=== PATIENT | female | born 1960 | race American Indian/Alaskan Native ===

== ENCOUNTER 2019-06-12 13:52 | Emergency (ER) | payer MEDICAID ==
[2019-06-12 14:20] LABS: Bacteria,Urine 1+ /HPF (Negative); Bilirubin,Urine NEG (Negative); Blood,Urine NEG (Negative); Color,Urine Yellow (Yellow); Mucus,Urine FEW /HPF; Protein,Urine <15 mg/dL mg/dL (Negative); RBC,Urine < 1.0 /HPF (0.0-6.0); Urobilinogen,Urine < 2.0 mg/dL (<2.0)
[2019-06-12 14:27] LABS: Amphetamine Screen,Urine PRESUMPTIVE NEGATIVE; Benzodiazepines Screen,Urine PRESUMPTIVE NEGATIVE; Cannabinoid Screen,Urine PRESUMPTIVE NEGATIVE; Cocaine Screen,Urine PRESUMPTIVE NEGATIVE; Methadone Screen,Urine PRESUMPTIVE NEGATIVE; Opiate Screen,Urine PRESUMPTIVE NEGATIVE
[2019-06-12] MEDS ORDERED: ATIVAN IM PRN (14:44)
[2019-06-12] MEDS ORDERED: HALDOL IM PRN (14:44)
--- NOTE | 2019-06-12 14:45 | Emergency Department Report ---
<GIO PASCUAL - Last Filed: 06/12/19 17:11> ED General Adult HPI - General Chief complaint: Altered Mental Status Stated complaint: AMS Time Seen by Provider: 06/12/19 14:23 Source: patient, EMS ( EMS documentation not available at time of chart dictation ), RN notes reviewed Mode of arrival: Stretcher Limitations: Altered Mental Status, Other (the patient is a poor historian) - History of Present Illness Initial comments: This is a 59-year-old female. This patient is not known to this provider previously. The patient cannot tell me why she is at the hospital. Apparently, she was found in a stationary car, and was unresponsive. She was given Narcan in the field and was subsequently responsive to pain. Initially, the patient refused to follow commands. In the emergency room, she denies physical pain. She does not know how she got here. When asked about homicidality or suicidality, the patient will not answer. No additional history is available at this time. The patient specifically denied headache, neck pain, chest pain, abdominal pain, shortness of breath and urinary symptoms. She continues to be evasive about questions regarding suicidality. -: This afternoon Severity scale (0 -10): 0 Consistency: other Improves with: other Worsens with: other - Related Data Allergies Allergy/AdvReac Type Severity Reaction Status Date / Time Unable to Assess Allergy Unverified 06/12/19 14:06 ED Review of Systems Comment: see hpi Constitutional: see HPI Eyes: as per HPI ENT: as per HPI Respiratory: see HPI Cardiovascular: as per HPI Endocrine: see HPI Gastrointestinal: as per HPI Genitourinary: as per HPI Musculoskeletal: as per HPI Skin: as per HPI Neurological: as per HPI Psychiatric: as per HPI Hematological/Lymphatic: as per HPI ED Past Medical Hx - Past Medical History Additional medical history: DEEPIKA - Surgical History Additional Surgical History: DEEPIKA - Social History Smoking Status: Unknown if ever smoked ED Physical Exam - General Limitations: Other (the patient is disorganized. The patient is a poor historian.) General appearance: alert, in no apparent distress - Head Head exam: Present: atraumatic, normocephalic - Eye Eye exam: Present: normal appearance, EOMI, other (visual acuity intact to finger counting and color perception at a close distance). Absent: nystagmus - ENT ENT exam: Present: normal exam, normal orophraynx, mucous membranes moist, normal external ear exam - Neck Neck exam: Present: normal inspection, full ROM. Absent: tenderness, meningismus - Respiratory Respiratory exam: Present: normal lung sounds bilaterally. Absent: respiratory distress - Cardiovascular Cardiovascular Exam: Present: regular rate, normal rhythm, normal heart sounds. Absent: bradycardia, tachycardia, irregular rhythm, systolic murmur, diastolic murmur, rubs, gallop - GI/Abdominal GI/Abdominal exam: Present: soft. Absent: distended, tenderness, guarding, rigid, pulsatile mass - Extremities Exam Extremities exam: Present: normal inspection, full ROM, other (2+ pulses noted in the bilateral upper, lower extremities. There is no long bone tenderness. Musculoskeletal compartments are soft. The pelvis is stable.). Absent: pedal edema, calf tenderness - Back Exam Back exam: Present: normal inspection, full ROM. Absent: tenderness, CVA tenderness (R), CVA tenderness (L), paraspinal tenderness, vertebral tenderness - Neurological Exam Neurological exam: Present: alert (the patient is alert to name. She knows that she is at the hospital.), other (there is no facial droop. The tongue is midline. Extraocular movements are intact bilaterally. Patient speaking in full complete sentences. Shoulder shrug is intact bilaterally. Hearing is grossly intact bilaterally. Visual acuity intact to finger counting and color perception at a close distance. 5/5 strength 4 extremities. Sensation intact to light touch in 4 extremities.) - Psychiatric Psychiatric exam: Present: anxious, flat affect - Skin Skin exam: Present: warm, dry, intact, normal color. Absent: rash ED Course - Reevaluation(s) Reevaluation #1: 06/12/19 16:06 Differential diagnosis, including not limited to: Mood disorder, suicidality, overdose, intracranial hemorrhage, toxic overdose, metabolic insult Assessment and plan: 59-year-old female reportedly found in a car, unresponsive, given Narcan, would not follow commands, at this point time, appears to be somewhat disorganized, alert to name and location, she does not appear to be able to care for herself independently at this time, she is evasive about questions regarding suicidality, she will not answer questions about overdose. Given all the above, the patient will be placed on a psychiatric hold, and a psychiatric consultation will be requested. Screening laboratory studies so far have been unremarkable. Potassium is repleted. Psychiatric consultation and case management consultation will be requested. Reevaluation #2: 06/12/19 17:12 The patient Is resting comfortably, and in no acute distress. CT scan brain, x- ray of the chest are unremarkable. Her incidental leukopenia and thromboc ytopenia do not represent an emergency medical condition that would require hospitalization, or emergent consultation, and these can be followed up as an outpatient. The patient at this point time does not appear to have an immediate medical condition that would preclude psychiatric evaluation, consultation and placement in necessary. Psychiatric team is informed. ED Medical Decision Making - Lab Data Result diagrams: 06/12/19 14:48 06/12/19 14:48 Vital Signs 06/12/19 06/12/19 06/12/19 13:46 13:54 14:00 Temperature 98.4 F Pulse Rate 80 75 69 Respiratory 17 16 10 L Rate Blood Pressure Blood Pressure 161/89 [Right] O2 Sat by Pulse 99 99 99 Oximetry 06/12/19 06/12/19 06/12/19 14:07 14:15 14:30 Temperature Pulse Rate 68 64 Respiratory 15 14 18 Rate Blood Pressure 161/89 143/85 Blood Pressure [Right] O2 Sat by Pulse 100 98 99 Oximetry 06/12/19 15:51 Temperature Pulse Rate 61 Respiratory 18 Rate Blood Pressure Blood Pressure 151/84 [Right] O2 Sat by Pulse 100 Oximetry Lab Results 06/12/19 06/12/19 06/12/19 Range/Units 14:11 14:11 14:14 WBC (4.5-11.0) K/mm3 RBC (3.65-5.03) M/mm3 Hgb (10.1-14.3) gm/dl Hct (30.3-42.9) % MCV (79-97) fl MCH (28-32) pg MCHC (30-34) % RDW (13.2-15.2) % Sodium (137-145) mmol/L Potassium (3.6-5.0) mmol/L Chloride (98-107) mmol/L Carbon Dioxide (22-30) mmol/L Anion Gap mmol/L BUN (7-17) mg/dL Creatinine (0.7-1.2) mg/dL Estimated GFR ml/min BUN/Creatinine Ratio % Glucose (65-100) mg/dL POC Glucose 82 (70-105) Calcium (8.4-10.2) mg/dL Magnesium (1.7-2.3) mg/dL Total Bilirubin (0.1-1.2) mg/dL AST (5-40) units/L ALT (7-56) units/L Alkaline Phosphatase (35-129) units/L Total Creatine Kinase (30-135) units/L Total Protein (6.3-8.2) g/dL Albumin (3.9-5) g/dL Albumin/Globulin Ratio % TSH (0.270-4.200) mlU/mL Free T4 (0.76-1.46) ng/dL Urine Color Yellow (Yellow) Urine Turbidity Clear (Clear) Urine pH 7.0 (5.0-7.0) Ur Specific [place] 1.016 (1.003-1.030) Urine Protein <15 mg/dl (Negative) mg/dL Urine Glucose (UA) Neg (Negative) mg/dL Urine Ketones Neg (Negative) mg/dL Urine Blood Neg (Negative) Urine Nitrite Neg (Negative) Urine Bilirubin Neg (Negative) Urine Urobilinogen < 2.0 (<2.0) mg/dL Ur Leukocyte Esterase Neg (Negative) Urine WBC (Auto) 1.0 (0.0-6.0) /HPF Urine RBC (Auto) < 1.0 (0.0-6.0) /HPF U Epithel Cells (Auto) < 1.0 (0-13.0) /HPF Urine Bacteria (Auto) 1+ (Negative) /HPF Urine Mucus Few /HPF Salicylates (2.8-20.0) mg/dL Urine Opiates Screen Presumptive negative Urine Methadone Screen Presumptive negative Acetaminophen (10.0-30.0) ug/mL Ur Barbiturates Screen Presumptive negative Valproic Acid (50-100) ug/mL Ur Phencyclidine Scrn Presumptive negative Ur Amphetamines Screen Presumptive negative U Benzodiazepines Scrn Presumptive negative [place] (0.0-1.2) mmol/L Urine Cocaine Screen Presumptive negative U Marijuana (THC) Screen Presumptive negative Drugs of Abuse Note Disclamer Plasma/Serum Alcohol (0-0.07) % 06/12/19 06/12/19 06/12/19 Range/Units 14:48 14:48 14:48 WBC 3.1 L (4.5-11.0) K/mm3 RBC 4.33 (3.65-5.03) M/mm3 Hgb 13.2 (10.1-14.3) gm/dl Hct 38.9 (30.3-42.9) % MCV 90 (79-97) fl MCH 31 (28-32) pg MCHC 34 (30-34) % RDW 14.2 (13.2-15.2) % Sodium 142 (137-145) mmol/L Potassium 3.3 L (3.6-5.0) mmol/L Chloride 101.4 (98-107) mmol/L Carbon Dioxide 26 (22-30) mmol/L Anion Gap 18 mmol/L BUN 6 L (7-17) mg/dL Creatinine 0.5 L (0.7-1.2) mg/dL Estimated GFR > 60 ml/min BUN/Creatinine Ratio 12 % Glucose 97 (65-100) mg/dL POC Glucose (70-105) Calcium 9.4 (8.4-10.2) mg/dL Magnesium 2.10 (1.7-2.3) mg/dL Total Bilirubin 0.90 (0.1-1.2) mg/dL AST 24 (5-40) units/L ALT 15 (7-56) units/L Alkaline Phosphatase 75 (35-129) units/L Total Creatine Kinase 35 (30-135) units/L Total Protein 8.8 H (6.3-8.2) g/dL Albumin 4.3 (3.9-5) g/dL Albumin/Globulin Ratio 1.0 % TSH (0.270-4.200) mlU/mL Free T4 1.28 (0.76-1.46) ng/dL Urine Color (Yellow) Urine Turbidity (Clear) Urine pH (5.0-7.0) Ur Specific [place] (1.003-1.030) Urine Protein (Negative) mg/dL Urine Glucose (UA) (Negative) mg/dL Urine Ketones (Negative) mg/dL Urine Blood (Negative) Urine Nitrite (Negative) Urine Bilirubin (Negative) Urine Urobilinogen (<2.0) mg/dL Ur Leukocyte Esterase (Negative) Urine WBC (Auto) (0.0-6.0) /HPF Urine RBC (Auto) (0.0-6.0) /HPF U Epithel Cells (Auto) (0-13.0) /HPF Urine Bacteria (Auto) (Negative) /HPF Urine Mucus /HPF Salicylates (2.8-20.0) mg/dL Urine Opiates Screen Urine Methadone Screen Acetaminophen (10.0-30.0) ug/mL Ur Barbiturates Screen Valproic Acid (50-100) ug/mL Ur Phencyclidine Scrn Ur Amphetamines Screen U Benzodiazepines Scrn [place] (0.0-1.2) mmol/L Urine Cocaine Screen U Marijuana (THC) Screen Drugs of Abuse Note Plasma/Serum Alcohol (0-0.07) % 06/12/19 06/12/19 06/12/19 Range/Units 14:48 14:48 14:48 WBC (4.5-11.0) K/mm3 RBC (3.65-5.03) M/mm3 Hgb (10.1-14.3) gm/dl Hct (30.3-42.9) % MCV (79-97) fl MCH (28-32) pg MCHC (30-34) % RDW (13.2-15.2) % Sodium (137-145) mmol/L Potassium (3.6-5.0) mmol/L Chloride (98-107) mmol/L Carbon Dioxide (22-30) mmol/L Anion Gap mmol/L BUN (7-17) mg/dL Creatinine (0.7-1.2) mg/dL Estimated GFR ml/min BUN/Creatinine Ratio % Glucose (65-100) mg/dL POC Glucose (70-105) Calcium (8.4-10.2) mg/dL Magnesium (1.7-2.3) mg/dL Total Bilirubin (0.1-1.2) mg/dL AST (5-40) units/L ALT (7-56) units/L Alkaline Phosphatase (35-129) units/L Total Creatine Kinase (30-135) units/L Total Protein (6.3-8.2) g/dL Albumin (3.9-5) g/dL Albumin/Globulin Ratio % TSH 1.720 (0.270-4.200) mlU/mL Free T4 (0.76-1.46) ng/dL Urine Color (Yellow) Urine Turbidity (Clear) Urine pH (5.0-7.0) Ur Specific [place] (1.003-1.030) Urine Protein (Negative) mg/dL Urine Glucose (UA) (Negative) mg/dL Urine Ketones (Negative) mg/dL Urine Blood (Negative) Urine Nitrite (Negative) Urine Bilirubin (Negative) Urine Urobilinogen (<2.0) mg/dL Ur Leukocyte Esterase (Negative) Urine WBC (Auto) (0.0-6.0) /HPF Urine RBC (Auto) (0.0-6.0) /HPF U Epithel Cells (Auto) (0-13.0) /HPF Urine Bacteria (Auto) (Negative) /HPF Urine Mucus /HPF Salicylates < 0.3 L (2.8-20.0) mg/dL Urine Opiates Screen Urine Methadone Screen Acetaminophen < 5.0 L (10.0-30.0) ug/mL Ur Barbiturates Screen Valproic Acid < 2.8 L (50-100) ug/mL Ur Phencyclidine Scrn Ur Amphetamines Screen U Benzodiazepines Scrn [place] 0.1 (0.0-1.2) mmol/L Urine Cocaine Screen U Marijuana (THC) Screen Drugs of Abuse Note Plasma/Serum Alcohol (0-0.07) % 06/12/19 Range/Units 14:48 WBC (4.5-11.0) K/mm3 RBC (3.65-5.03) M/mm3 Hgb (10.1-14.3) gm/dl Hct (30.3-42.9) % MCV (79-97) fl MCH (28-32) pg MCHC (30-34) % RDW (13.2-15.2) % Sodium (137-145) mmol/L Potassium (3.6-5.0) mmol/L Chloride (98-107) mmol/L Carbon Dioxide (22-30) mmol/L Anion Gap mmol/L BUN (7-17) mg/dL Creatinine (0.7-1.2) mg/dL Estimated GFR ml/min BUN/Creatinine Ratio % Glucose (65-100) mg/dL POC Glucose (70-105) Calcium (8.4-10.2) mg/dL Magnesium (1.7-2.3) mg/dL Total Bilirubin (0.1-1.2) mg/dL AST (5-40) units/L ALT (7-56) units/L Alkaline Phosphatase (35-129) units/L Total Creatine Kinase (30-135) units/L Total Protein (6.3-8.2) g/dL Albumin (3.9-5) g/dL Albumin/Globulin Ratio % TSH (0.270-4.200) mlU/mL Free T4 (0.76-1.46) ng/dL Urine Color (Yellow) Urine Turbidity (Clear) Urine pH (5.0-7.0) Ur Specific [place] (1.003-1.030) Urine Protein (Negative) mg/dL Urine Glucose (UA) (Negative) mg/dL Urine Ketones (Negative) mg/dL Urine Blood (Negative) Urine Nitrite (Negative) Urine Bilirubin (Negative) Urine Urobilinogen (<2.0) mg/dL Ur Leukocyte Esterase (Negative) Urine WBC (Auto) (0.0-6.0) /HPF Urine RBC (Auto) (0.0-6.0) /HPF U Epithel Cells (Auto) (0-13.0) /HPF Urine Bacteria (Auto) (Negative) /HPF Urine Mucus /HPF Salicylates (2.8-20.0) mg/dL Urine Opiates Screen Urine Methadone Screen Acetaminophen (10.0-30.0) ug/mL Ur Barbiturates Screen Valproic Acid (50-100) ug/mL Ur Phencyclidine Scrn Ur Amphetamines Screen U Benzodiazepines Scrn [place] (0.0-1.2) mmol/L Urine Cocaine Screen U Marijuana (THC) Screen Drugs of Abuse Note Plasma/Serum Alcohol < 0.01 (0-0.07) % - EKG Data -: EKG Interpreted by Me - EKG Data When compared to previous EKG there are: previous EKG unavailable 06/12/19 16:08 There is currently no EKG available for comparison. This is a bradycardic rate, 59 bpm, left axis deviation, left anterior fascicular block, MA interval prolonged, QTC within normal limits, there is borderline left ventricular hypertrophy, the EKG is abnormal, there is no prior for comparison, this is not consistent with ST elevation myocardial infarction. - Radiology Data Radiology results: pending, image reviewed ED Disposition Clinical Impression: Disorganized behavior Disposition: DC-01 TO HOME OR SELFCARE Is pt being admited?: No Does the pt Need Aspirin: No Condition: Good Referrals: LULI PARDO MD [Primary Care Provider] - 3-5 Days <JANIE FRIEDMAN - Last Filed: 06/13/19 16:41> ED Review of Systems ROS: Stated complaint: AMS Other details as noted in HPI ED Course Vital Signs 06/12/19 06/12/19 06/12/19 13:46 13:54 14:00 Temperature 98.4 F Pulse Rate 80 75 69 Respiratory 17 16 10 L Rate Blood Pressure Blood Pressure 161/89 [Right] O2 Sat by Pulse 99 99 99 Oximetry 06/12/19 06/12/19 06/12/19 14:07 14:15 14:30 Temperature Pulse Rate 68 64 Respiratory 15 14 18 Rate Blood Pressure 161/89 143/85 Blood Pressure [Right] O2 Sat by Pulse 100 98 99 Oximetry 06/12/19 06/12/19 06/12/19 15:51 16:00 16:15 Temperature Pulse Rate 62 60 59 L Respiratory 20 11 L 14 Rate Blood Pressure 151/84 142/84 142/84 Blood Pressure 151/84 [Right] O2 Sat by Pulse 100 98 99 Oximetry 06/12/19 06/12/19 06/13/19 19:55 20:02 00:46 Temperature 98.5 F 98.2 F Pulse Rate 78 Respiratory 18 16 16 Rate Blood Pressure 113/68 Blood Pressure 103/69 [Right] O2 Sat by Pulse 99 Oximetry 06/13/19 06/13/19 06/13/19 01:00 08:23 14:35 Temperature 98.2 F 97.6 F 98.6 F Pulse Rate 69 69 64 Respiratory 16 16 16 Rate Blood Pressure Blood Pressure 113/68 118/74 123/79 [Right] O2 Sat by Pulse 100 98 97 Oximetry ED Medical Decision Making - Lab Data Result diagrams: 06/12/19 14:48 06/12/19 14:48 - Medical Decision Making At this point the patient is seen by mental health staff. Patient states to her mental health staff that she was in her car just meditating. She did not want to talk to anyone. Patient is calm and cooperative at this time. Patient's 1013 has been present about mental health staff and patient be discharged home. Critical care attestation.: If time is entered above; I have spent that time in minutes in the direct care of this critically ill patient, excluding procedure time. ED Disposition Is pt being admited?: No Does the pt Need Aspirin: No Time of Disposition: 16:41
[2019-06-12 15:19] LABS: Alanine Aminotransferase 15 units/L (7-56); Albumin 4.3 g/dL (3.9-5); BUN/Creatinine Ratio 12; Blood Urea Nitrogen 6 mg/dL (7-17); Calcium 9.4 mg/dL (8.4-10.2); Hemolysis Index 6
[2019-06-12 15:35] LABS: Hematocrit 38.9 % (30.3-42.9); Hemoglobin 13.2 gm/dl (10.1-14.3); Mean Corpuscular HGB Conc 34 % (30-34); Mean Corpuscular Volume 90 fl (79-97); Red Blood Count 4.33 M/mm3 (3.65-5.03); Red Cell Distribution Width 14.2 % (13.2-15.2)
[2019-06-12] MEDS ORDERED: K-DUR PO ONE (16:03)
--- NOTE | 2019-06-12 16:16 | XRay Report ---
CHEST 1 VIEW INDICATION: ams od. COMPARISON: 05/06/2019 FINDINGS: Support devices: None. Heart: Within normal limits. Pulmonary vasculature: Normal. Lungs/Pleura: No acute air space or interstitial disease. Additional findings: None. IMPRESSION: 1. No acute findings. Signer Name: Jovany Alvarado MD Signed: 06/12/2019 4:12 PM Workstation Name: [id number]
[2019-06-12 16:48] LABS: Platelet Count 78 K/mm3 (140-440)
--- NOTE | 2019-06-12 17:01 | Cat Scan Report ---
CT head/brain wo con INDICATION: Altered mental status.. TECHNIQUE: Routine CT head without contrast. All CT scans at this location are performed using CT dos e reduction for ALARA by means of automated exposure control. COMPARISON: Head CT dated 05/06/2019. FINDINGS: BRAIN / INTRACRANIAL CONTENTS: No acute hemorrhage, mass effect, midline shift, or hydrocephalus. No appreciable acute large territorial or lacunar infarct. No chronic infarct or focal atrophy. Normal b rain volume and ventricular/sulcal size for age. ORBITS: No significant abnormality of visualized orbits. SINUSES / MASTOIDS: No significant abnormality of visualized sinuses and mastoid air cells. ADDITIONAL FINDINGS: None. IMPRESSION: 1. No acute intracranial abnormality. No adverse change from the prior exam. Signer Name: Peter Teixeira MD Signed: 06/12/2019 4:57 PM Workstation Name: [id number]
--- NOTE | 2019-06-13 12:53 | Consultation ---
History of Present Illness - Reason for Consult Consult date: 06/13/19 Reason for consult: Mental Health Evaluation Requesting physician: GIO PASCUAL - Chief Complaint Chief complaint: "I didn't want to be bothered" - History of Present Psychiatric Illness 59 y.o. AA female who was unresponsive in a car prior to her arrival to the ER. Today the patient was calm and cooperative during the assessment. She stated that she's homeless and reside in her car. She stated that she was "meditating" yesterday when EMS arrived at her car. She stated that she didn't want to talk to anyone when EMS tried to communicate with her. She denies taking any medication prior to the arrival of EMS and denies a hx of suicide attempts when asked. She stated that her life have been "hard" since being unemployed. She stated that her main issues is finding a residence and getting back to work. She stated that she made a mistake by parking and not responding to EMS. She denies SI/HI's, AVH's, and being depressed. She denies erratic sleep and a poor appetite. She denies recreational drug use and alcohol consumption (etoh). Medications and Allergies Allergies Allergy/AdvReac Type Severity Reaction Status Date / Time Unable to Assess Allergy Unverified 06/12/19 14:06 Active Meds: Active Medications Haloperidol Lactate (Haldol) 5 mg IM Q6HR PRN PRN Reason: Agitation Lorazepam (Ativan) 2 mg IM Q4HR PRN PRN Reason: Agitation Past psychiatric history - Past Medical History Past Medical History: other (Left Hip injury) Past Surgical History: No surgical history - past Psychiatric treatment and history psychiatric treatment history: Denies a psy hx and a fam psy hx. - Social History Social history: other (Homeless) Mental Status Exam - Vital signs Last Vital Signs Temp 97.6 F 06/13/19 08:23 Pulse 69 06/13/19 08:23 Resp 16 06/13/19 08:23 BP 118/74 06/13/19 08:23 Pulse Ox 98 06/13/19 08:23 - Exam Narrative exam: MSE: Appearance: calm, cooperative Behavior: regular eye contact Speech: regular rate and tone Mood: "well" Affect: congruent to mood Thought Process: circumstantial Thought Content: denies SI/HI's and AVH's Motor Activity: sitting up in the bed Cognition: A/O x3 Insight: appropriate Judgment: fair Results Result Diagrams: 06/12/19 14:48 06/12/19 14:48 Abnormal lab results 06/12/19 06/12/19 06/12/19 Range/Units 14:48 14:48 14:48 WBC 3.1 L (4.5-11.0) K/mm3 Plt Count 78 L (140-440) K/mm3 Potassium 3.3 L (3.6-5.0) mmol/L BUN 6 L (7-17) mg/dL Creatinine 0.5 L (0.7-1.2) mg/dL Total Protein 8.8 H (6.3-8.2) g/dL Salicylates < 0.3 L (2.8-20.0) mg/dL Acetaminophen (10.0-30.0) ug/mL Valproic Acid < 2.8 L (50-100) ug/mL 06/12/19 Range/Units 14:48 WBC (4.5-11.0) K/mm3 Plt Count (140-440) K/mm3 Potassium (3.6-5.0) mmol/L BUN (7-17) mg/dL Creatinine (0.7-1.2) mg/dL Total Protein (6.3-8.2) g/dL Salicylates (2.8-20.0) mg/dL Acetaminophen < 5.0 L (10.0-30.0) ug/mL Valproic Acid (50-100) ug/mL All other labs normal. Assessment and Plan Assessment and plan: Impression: No overt psychosis with the patient. Today the patient is calm and cooperative during the assessment. The patient is no threat to self. UDS is negative. Recommendation/Plan: Rescind 1013. Case Mgmt involvement, the patient will need assistance with placement. Psy sign off. Staffed with Dr Amos Barahona.
[2019-06-13 15:56] VITALS: BP 123/79
== END 2019-06-13 18:32 | disposition home or self-care (01) ==
LOC: EEVIPCON 13:52 → ED 13:52
DX: R41.82 Altered mental status, unspecified (principal); R46.89 Other symptoms and signs involving appearance and behavior; Z59.0 Homelessness
CPT/HCPCS: 36415; 70450; 71045; 80053; 80164; 80178; 80307; 80320; 81001; 82140; 82550; 82962; 83735; 84439; 84443; 85027; 93005; 93010; G0480

== ENCOUNTER 2019-07-03 20:18 | Emergency (ER) | payer MEDICAID ==
[2019-07-03 20:38] VITALS: BP 139/70
--- NOTE | 2019-07-03 20:38 | Emergency Department Report ---
Blank Doc - Documentation Documentation: 59-year-old female that presents with URI symptoms. This initial assessment/diagnostic orders/clinical plan/treatment(s) is/are subject to change based on patient's health status, clinical progression and re- assessment by fellow clinical providers in the ED. Further treatment and workup at subsequent clinical providers discretion. Patient/guardians urged not to elope from the ED as their condition may be serious if not clinically assessed and managed. Initial orders include: 1- Patient sent to [facility] for further evaluation and treatment 2- flu swab 3- CXR
--- NOTE | 2019-07-03 22:13 | XRay Report ---
CHEST 2 VIEWS INDICATION: cough. COMPARISON: 06/12/2019 FINDINGS: Support devices: None. Heart: Within normal limits. Lungs: No acute air space or interstitial disease. Pleura: No significant pleural effusion. No pneumothorax. Additional findings: None. IMPRESSION: 1. No acute findings. Signer Name: Joshua Martin MD Signed: 07/03/2019 10:09 PM Workstation Name: [id number]
--- NOTE | 2019-07-04 00:14 | Emergency Department Report ---
ED General Adult HPI - General Chief complaint: Upper Respiratory Infection Stated complaint: BACK PAIN,RUNNING NOSE AND COUGH Time Seen by Provider: 07/03/19 20:38 Source: patient Mode of arrival: Ambulatory Limitations: No Limitations - History of Present Illness Initial comments: Ms. Romero is a 59 y/o aaf who presents for URI symptoms cough & rhinorrhea, and back with cough for past 1 week . pt denies fever or chills no n/v no sob no wheezing no cp. symptoms are exacerbated by activity , symptoms are relieved by rest. Onset/Timin -: week(s) Location: head Radiation: non-radiation Severity scale (0 -10): 4 Quality: aching Consistency: intermittent Improves with: rest Worsens with: other (activity ) Associated Symptoms: cough. denies: chest pain, fever/chills, nausea/vomiting, shortness of breath, weakness - Related Data Previous Rx's Medication Instructions Recorded Last Taken Type Benzonatate [Tessalon Perles] 100 mg PO Q8HR PRN #30 capsule 07/04/19 Unknown Rx Fluticasone [Flonase] 1 spray NS QDAY #1 bottle 07/04/19 Unknown Rx Ibuprofen [Motrin 800 MG tab] 800 mg PO Q8HR PRN #30 tablet 07/04/19 Unknown Rx Loratadine 10 mg PO DAILY #30 capsule 07/04/19 Unknown Rx Allergies Allergy/AdvReac Type Severity Reaction Status Date / Time Unable to Assess Allergy Unverified 06/12/19 14:06 ED Review of Systems ROS: Stated complaint: BACK PAIN,RUNNING NOSE AND COUGH Other details as noted in HPI Constitutional: denies: chills, fever Eyes: denies: eye pain, eye discharge, vision change ENT: congestion Respiratory: cough. denies: shortness of breath, wheezing Cardiovascular: denies: chest pain, palpitations Endocrine: no symptoms reported Gastrointestinal: denies: abdominal pain, nausea, vomiting, diarrhea Genitourinary: denies: urgency, dysuria, discharge Musculoskeletal: back pain. denies: joint swelling, arthralgia Skin: denies: rash, lesions Neurological: denies: headache, weakness, paresthesias Psychiatric: denies: anxiety, depression Hematological/Lymphatic: denies: easy bleeding, easy bruising ED Past Medical Hx - Past Medical History Previous Medical History?: Yes Additional medical history: DEEPIKA - Surgical History Past Surgical History?: Yes Additional Surgical History: DEEPIKA - Social History Smoking Status: Never Smoker Substance Use Type: None - Medications Home Medications: Home Medications Medication Instructions Recorded Confirmed Last Taken Type Benzonatate [Tessalon Perles] 100 mg PO Q8HR PRN #30 capsule 07/04/19 Unknown Rx Fluticasone [Flonase] 1 spray NS QDAY #1 bottle 07/04/19 Unknown Rx Ibuprofen [Motrin 800 MG tab] 800 mg PO Q8HR PRN #30 tablet 07/04/19 Unknown Rx Loratadine 10 mg PO DAILY #30 capsule 07/04/19 Unknown Rx ED Physical Exam - General Limitations: No Limitations General appearance: alert, in no apparent distress - Head Head exam: Present: atraumatic, normocephalic - Eye Eye exam: Present: normal appearance, PERRL, EOMI Pupils: Present: normal accommodation - ENT ENT exam: Present: normal orophraynx, mucous membranes moist, TM's normal bilaterally, normal external ear exam - Expanded ENT Exam Expanded Ear exam: Present: normal external inspection Throat exam: Positive: normal inspection, other (uvula midline no exudate no lesion no stridor no swelling no wheezing ). Negative: tonsillar erythema, tonsillomegaly, tonsillar exudate, R peritonsillar mass, L peritonsillar mass - Neck Neck exam: Present: normal inspection, full ROM. Absent: tenderness, meningismus, lymphadenopathy, thyromegaly - Respiratory Respiratory exam: Present: normal lung sounds bilaterally. Absent: wheezes, stridor, chest wall tenderness - Cardiovascular Cardiovascular Exam: Present: regular rate, normal heart sounds - GI/Abdominal GI/Abdominal exam: Present: soft, normal bowel sounds. Absent: distended, tenderness, bruit, hernia - Rectal Rectal exam: Present: deferred - Extremities Exam Extremities exam: Present: normal inspection, full ROM, normal capillary refill. Absent: tenderness, pedal edema - Back Exam Back exam: Present: normal inspection, full ROM. Absent: tenderness, CVA tenderness (R), CVA tenderness (L), muscle spasm, paraspinal tenderness, vertebral tenderness - Neurological Exam Neurological exam: Present: alert, oriented X3, CN II-XII intact, normal gait, reflexes normal. Absent: motor sensory deficit - Psychiatric Psychiatric exam: Present: normal affect, normal mood - Skin Skin exam: Present: warm, dry, intact, normal color. Absent: rash ED Course Vital Signs 07/03/19 20:34 Temperature 97.8 F Pulse Rate 89 Respiratory 16 Rate Blood Pressure 139/70 O2 Sat by Pulse 100 Oximetry ED Medical Decision Making - Radiology Data Radiology results: report reviewed, image reviewed Ordering Physician: KARMEN SMITH NP Date of Service: 07/03/19 Procedure(s): XR chest routine 2V Accession Number(s): [id number] cc: KARMEN SMITH NP Fluoro Time In Minutes: CHEST 2 VIEWS INDICATION: cough. COMPARISON: 06/12/2019 FINDINGS: Support devices: None. Heart: Within normal limits. Lungs: No acute air space or interstitial disease. Pleura: No significant pleural effusion. No pneumothorax. Additional findings: None. IMPRESSION: 1. No acute findings. Signer Name: Joshua Martin MD Signed: 07/03/2019 10:09 PM Workstation Name: [id number] Transcribed By: Dictated By: Joshua Martin MD Electronically Authenticated By: Jsohua Martin MD Signed Date/Time: 07/03/192208 DD/ 08 TD/TT: - Medical Decision Making This is URI, there is no dysuria no fever no chills , no sob no wheezing no resp distress. tx for URI Tessalon, ibuprofen, flonase, loratidine , pt will follow up pcp in 2-3 days. Critical care attestation.: If time is entered above; I have spent that time in minutes in the direct care of this critically ill patient, excluding procedure time. ED Disposition Clinical Impression: URI (upper respiratory infection) Qualifiers: URI type: unspecified viral URI Qualified Code(s): J06.9 - Acute upper respiratory infection, unspecified Disposition: -01 TO HOME OR SELFCARE Is pt being admited?: No Does the pt Need Aspirin: No Condition: Stable Instructions: Upper Respiratory Infection (ED) Prescriptions: Fluticasone [Flonase] 1 spray NS QDAY #1 bottle Loratadine 10 mg PO DAILY #30 capsule Ibuprofen [Motrin 800 MG tab] 800 mg PO Q8HR PRN #30 tablet PRN Reason: pain Benzonatate [Tessalon Perles] 100 mg PO Q8HR PRN #30 capsule PRN Reason: Cough Referrals: [facility] [Outside] - 3-5 Days Forms: Work/School Release Form(ED) Time of Disposition: 00:19
== END 2019-07-04 00:30 | disposition home or self-care (01) ==
LOC: ED 20:18
DX: J06.9 Acute upper respiratory infection, unspecified (principal); Z79.1 Long term (current) use of non-steroidal anti-inflammatories (NSAID); Z79.899 Other long term (current) drug therapy
CPT/HCPCS: 71046; 99283

== ENCOUNTER 2019-09-04 21:54 | Emergency (ER) | payer MEDICAID ==
--- NOTE | 2019-09-04 22:27 | Emergency Department Report ---
ED General Adult HPI - General Chief complaint: Altered Mental Status Stated complaint: AMS Source: EMS Mode of arrival: Stretcher Limitations: Altered Mental Status - History of Present Illness Initial comments: 59-year-old female with a prior psychiatric diagnosis of bipolar presents after being brought in by EMS after patient was kicked out of a housing nursing home. Upon reading the patient's documentation patient was kicked out of the [facility] at 5 PM after not following orders and would not cooperate with staff. The documentation also states that patient was stating that Thom can go to handle and she wants her rebate of $10 and will take it. Upon EMS arrival patient was sitting on the street and was in a catatonic state per EMS. Patient currently is not responding verbally. Patient occasionally opens and closes her eyes but will not follow any commands. Patient had a similar presentation to this emergency department where she was unresponsive and was evaluated by psychiatry on 06/12/2019. - Related Data Previous Rx's Medication Instructions Recorded Last Taken Type Benzonatate [Tessalon Perles] 100 mg PO Q8HR PRN #30 capsule 07/04/19 Unknown Rx Fluticasone [Flonase] 1 spray NS QDAY #1 bottle 07/04/19 Unknown Rx Ibuprofen [Motrin 800 MG tab] 800 mg PO Q8HR PRN #30 tablet 07/04/19 Unknown Rx Loratadine 10 mg PO DAILY #30 capsule 07/04/19 Unknown Rx Allergies Allergy/AdvReac Type Severity Reaction Status Date / Time No Known Allergies Allergy Unverified 09/05/19 03:18 ED Review of Systems ROS: Stated complaint: AMS Other details as noted in HPI Comment: altered mental status ED Past Medical Hx - Past Medical History Previous Medical History?: Yes Hx Psychiatric Treatment: Yes (bipolar) Additional medical history: DEEPIKA - Surgical History Additional Surgical History: DEEPIKA - Social History Smoking Status: Unknown if ever smoked Substance Use Type: None - Medications Home Medications: Home Medications Medication Instructions Recorded Confirmed Last Taken Type Benzonatate [Tessalon Perles] 100 mg PO Q8HR PRN #30 capsule 07/04/19 Unknown Rx Fluticasone [Flonase] 1 spray NS QDAY #1 bottle 07/04/19 Unknown Rx Ibuprofen [Motrin 800 MG tab] 800 mg PO Q8HR PRN #30 tablet 07/04/19 Unknown Rx Loratadine 10 mg PO DAILY #30 capsule 07/04/19 Unknown Rx ED Physical Exam - General Limitations: Altered Mental Status General appearance: other (no acute distress moving head around ) - Head Head exam: Present: atraumatic, normocephalic - Eye Eye exam: Present: normal appearance - ENT ENT exam: Present: mucous membranes dry - Neck Neck exam: Present: normal inspection - Respiratory Respiratory exam: Present: normal lung sounds bilaterally. Absent: respiratory distress - Cardiovascular Cardiovascular Exam: Present: regular rate, normal rhythm. Absent: systolic murmur, diastolic murmur, rubs, gallop - GI/Abdominal GI/Abdominal exam: Present: soft, normal bowel sounds - Extremities Exam Extremities exam: Present: normal inspection - Back Exam Back exam: Present: normal inspection - Neurological Exam Neurological exam: Present: other (Unable to perform full neurologic exam as patient is not following commands; moving extremities) - Psychiatric Psychiatric exam: Present: flat affect, other (not speaking; catatonic state) - Skin Skin exam: Present: warm, dry, intact, normal color. Absent: rash ED Course Vital Signs 09/04/19 09/04/19 09/04/19 22:07 22:15 22:31 Pulse Rate 69 67 65 Respiratory 8 L 13 11 L Rate Blood Pressure 155/88 155/88 O2 Sat by Pulse 98 97 97 Oximetry 09/05/19 09/05/19 09/05/19 00:07 00:15 00:31 Pulse Rate 63 60 67 Respiratory 21 17 18 Rate Blood Pressure 155/88 135/73 135/73 O2 Sat by Pulse 96 100 100 Oximetry 09/05/19 09/05/19 09/05/19 00:45 01:01 01:15 Pulse Rate 62 58 L 67 Respiratory 18 20 22 Rate Blood Pressure 135/73 135/73 135/73 O2 Sat by Pulse 100 100 99 Oximetry 09/05/19 09/05/19 09/05/19 01:30 01:45 02:00 Pulse Rate 62 58 L 60 Respiratory 18 13 18 Rate Blood Pressure 135/73 135/73 152/80 O2 Sat by Pulse 100 Oximetry 09/05/19 09/05/19 09/05/19 02:15 02:31 02:45 Pulse Rate 59 L 62 71 Respiratory 19 22 26 H Rate Blood Pressure 152/80 152/80 152/80 O2 Sat by Pulse 100 98 Oximetry 09/05/19 09/05/19 03:01 03:15 Pulse Rate 66 64 Respiratory 18 23 Rate Blood Pressure 152/80 152/80 O2 Sat by Pulse 100 99 Oximetry ED Medical Decision Making - Lab Data Result diagrams: 09/04/19 22:23 09/04/19 22:23 - EKG Data EKG shows normal: sinus rhythm Rate: bradycardia - EKG Data When compared to previous EKG there are: no significant change Interpretation: no acute changes - Medical Decision Making Patient currently is ambulatory and states when asked that she is Thom on the inside and [facility] on the outside. patient does not answer to where she is but states that she is displeased with staying at the nursing home. patient is medically clear. Patient placed on ED hold and will be seen by behavioral health in morning. - Differential Diagnosis Polysubstance Abuse; intracranial Bleed; Dehydration; Anemia Critical care attestation.: If time is entered above; I have spent that time in minutes in the direct care of this critically ill patient, excluding procedure time. ED Disposition Clinical Impression: Altered mental status, unspecified, Psychosis Is pt being admited?: No Condition: Stable
[2019-09-04 22:42] LABS: Basophils % (Auto) 0.6 % (0.0-1.8); Eosinophils # (Auto) 0.2 K/mm3 (0.0-0.4); Eosinophils % (Auto) 3.9 % (0.0-4.3); Hematocrit 38.1 % (30.3-42.9); Hemoglobin 13.1 gm/dl (10.1-14.3); Lymphocytes # (Auto) 1.5 K/mm3 (1.2-5.4); Lymphocytes % (Auto) 31.4 % (13.4-35.0); Mean Corpuscular HGB Conc 34 % (30-34); Mean Corpuscular Volume 90 fl (79-97); Monocytes # (Auto) 0.6 K/mm3 (0.0-0.8); Monocytes % (Auto) 12.3 % (0.0-7.3); Platelet Count 118 K/mm3 (140-440); Red Blood Count 4.22 M/mm3 (3.65-5.03); Red Cell Distribution Width 13.2 % (13.2-15.2)
[2019-09-04 22:58] LABS: BUN/Creatinine Ratio 10; Blood Urea Nitrogen 6 mg/dL (7-17); Calcium 9.3 mg/dL (8.4-10.2); Hemolysis Index 4
--- NOTE | 2019-09-04 23:00 | XRay Report ---
CHEST 1 VIEW 10:30 PM INDICATION / CLINICAL INFORMATION: Altered mental status. COMPARISON: 07/03/2019. FINDINGS: SUPPORT DEVICES: None. HEART / MEDIASTINUM: The heart size and pulmonary vasculature are normal for technique. The aorta is normal in caliber. LUNGS / PLEURA: No significant pulmonary or pleural abnormality. No pneumothorax. ADDITIONAL FINDINGS: The right hemidiaphragm is mildly elevated. IMPRESSION: No acute pulmonary disease or significant change. Signer Name: Elliot Sepulveda MD Signed: 09/04/2019 10:56 PM Workstation Name: [id number]
--- NOTE | 2019-09-04 23:19 | Cat Scan Report ---
CT HEAD/BRAIN WO CON INDICATION / CLINICAL INFORMATION: Altered mental status. TECHNIQUE: All CT scans at this location are performed using CT dose reduction for ALARA by means of automated e xposure control. COMPARISON: 06/12/2019. FINDINGS: The ventricular system is normal in size and configuration. Mild low density in the region of the lef t external capsule near the insular cortex was present previously and is likely related to chronic sm all vessel ischemic change. No other focal lesion or mass effect is seen. There is no evidence of int racranial hemorrhage or acute major vessel occlusion. The calvarium is intact. The visualized paranasal sinuses and mastoid air cells are clear. IMPRESSION: No acute abnormality or significant change. Signer Name: Elliot Sepulveda MD Signed: 09/04/2019 11:14 PM Workstation Name: [id number]
[2019-09-05] MEDS ORDERED: ACETAMINOPHEN 500 MG TAB PO ONE (00:51)
[2019-09-05] MEDS ORDERED: ACETAMINOPHEN 500 MG TAB ONE (00:53)
[2019-09-05 02:41] LABS: Amphetamine Screen,Urine PRESUMPTIVE NEGATIVE; Benzodiazepines Screen,Urine PRESUMPTIVE NEGATIVE; Cannabinoid Screen,Urine PRESUMPTIVE NEGATIVE; Cocaine Screen,Urine PRESUMPTIVE NEGATIVE; Methadone Screen,Urine PRESUMPTIVE NEGATIVE; Opiate Screen,Urine PRESUMPTIVE NEGATIVE
[2019-09-05 02:53] LABS: Bacteria,Urine 1+ /HPF (Negative); Bilirubin,Urine NEG (Negative); Blood,Urine SM (Negative); Color,Urine Straw (Yellow); Protein,Urine <15 mg/dL mg/dL (Negative); Urobilinogen,Urine < 2.0 mg/dL (<2.0)
[2019-09-05 21:12] VITALS: BP 133/71
[2019-09-05] MEDS ORDERED: NITROFURANTOIN MONOHYD/M-CRYST 100 MG CAP PO SCH (22:00)
== END 2019-09-05 23:30 ==
LOC: EEVIPCON 21:54 → ED 21:54
DX: F23 Brief psychotic disorder (principal); R41.82 Altered mental status, unspecified; F32.89 Other specified depressive episodes; Z79.899 Other long term (current) drug therapy
CPT/HCPCS: 36415; 70450; 71045; 80048; 80307; 80320; 81001; 82550; 82962; 84484; 85025; 87086; 93005; 93010; G0480